=== PATIENT | female | born 1950 | race Caucasian/White ===

== ENCOUNTER 2016-08-15 09:55 | Outpatient (CLI) | payer MEDICARE ==
[~2016-08-15 09:55] MED LIST: ASPIRIN 81MG TA81 MG PO; CALCIUM 500 + D1 TA1; CRANBERRY400 MG PO; CRESTOR10 MG; FLEXERIL10 MG PO; FLEXERIL5 MG PO; IBUPROFEN400 MG; LYSINE PO; MAG-OX 400MG T400 MG PO; NEURONTIN600 MG PO; NORCO 325 MG-51 TAB PO; PRAVACHOL 20MG.20 MG PO; RECLAST5 MG/100 M; levothyroxine PO
[2016-08-15 10:05] VITALS: BP 139/68
== END 2016-08-15 10:14 | disposition home or self-care (01) ==
LOC: COP 09:55
DX: M81.0 Age-related osteoporosis without current pathological fracture (principal)
CPT/HCPCS: J0897

== ENCOUNTER → 2016-10-15 | Outpatient (CLI) | payer MEDICARE ==
[2016-10-15 09:36] LABS: BUN 13 mg/dL (7-18)
[2016-10-15 09:37] LABS: GFR (ESTIMATED) 83 ML/MIN (59-)
--- NOTE | 2016-10-17 20:34 | RADIOLOGY REPORT PS360 ---
DIG MAMM-SCREEN [facility] W/CAD CAD Screening ORDERING PHYSICIAN : Janet Jade APRN PATIENT AGE: 66 years GENDER: Female COMPARISON: Film screen mammogram from October Bilateral digital mammogram December INDICATION: Routine screening routine screening 66-year-old No hormones no new complaints noncontributory family history TECHNIQUE: Standard CC and MLO images were obtained. R2 CAD reviewed. FINDINGS: Asymmetric areas appear stable bilaterally. Dense breast tissue no immediate retroareolar region anterior breast again noted but similar to previous studies with no significant new findings. RIGHT BREAST: There is asymmetric island of glandular tissue in the deep axillary tail the right breast this is long-standing and seen on studies dating back to 2007 2009, supporting its long-standing, benign/indolent nature. Small separate density at the inferior right breast is been stable since 2010 studies as well. LEFT BREAST: A less pronounced separate island of glandular tissue seen at 12:00 at the left breast but it too is been stable since 2007. In fact the less pronounced than on those older studies been shown some fatty replacement in the interval. . IMPRESSION: No significant interval change Areas of asymmetric breast density are again noted but stable follow-up in one year recommended BI-RADS CATEGORY: 2_Benign RECOMMENDED FOLLOWUP: 12M 12 MONTH FOLLOW-UP (A letter has been sent to the patient regarding results of the study.)
== END ==
LOC: LAB 08:03 → RAD 08:03
PROVIDERS: Nurse Practitioner Family
DX: E78.5 Hyperlipidemia, unspecified (principal); E03.9 Hypothyroidism, unspecified; Z12.31 Encounter for screening mammogram for malignant neoplasm of breast
CPT/HCPCS: G0202

== ENCOUNTER 2017-05-08 10:40 | Outpatient (CLI) | payer MEDICARE ==
[2017-05-08 11:10] VITALS: BP 136/88
== END 2017-05-08 11:25 | disposition home or self-care (01) ==
LOC: COP 10:40
DX: M81.0 Age-related osteoporosis without current pathological fracture (principal)
CPT/HCPCS: J0897